=== PATIENT | female | born 1965 | race African-American/Black ===

== ENCOUNTER 2019-03-21 06:22 | Inpatient (IN) | payer OTHER ==
[2019-03-06 12:40] VITALS: BMI 37.4
[2019-03-21] MEDS ORDERED: DEXAMETHASONE SOD PHOSPHATE 4 MG/1 ML VIAL ONE ×3 (07:22→08:02)
[2019-03-21] MEDS ORDERED: LIDOCAINE HCL/PF 2% SDV 5ML VIAL ONE ×2 (07:22→11:00)
[2019-03-21] MEDS ORDERED: VANCOMYCIN 1,000 MG VIAL (RESTRICTED TO ID ONLY) ONE (07:22)
[2019-03-21] MEDS ORDERED: TRANEXAMIC ACID 1000 MG/10 ML VIAL ONE ×2 (07:22→09:56)
[2019-03-21] MEDS ORDERED: ceFAZolin SODIUM 1 GM VIAL ONE (07:22)
[2019-03-21] MEDS ORDERED: ONDANSETRON 4 MG/2 ML VIAL ONE ×2 (07:22→12:32)
[2019-03-21] MEDS ORDERED: PROPOFOL 20 ML ONE ×6 (07:22→10:27)
[2019-03-21] MEDS ORDERED: EPINEPHrine 1:10,000 (P-F SYR) 1 MG/10 ML DISP.SYRIN ONE (07:23)
[2019-03-21] MEDS ORDERED: EPHEDRINE SULFATE/0.9% NACL/PF 50 MG/10 ML SYRINGE NR ONE (07:23)
[2019-03-21] MEDS ORDERED: MIDAZOLAM HCL 2 MG/2 ML SINGLE DOSE VIAL ONE ×3 (07:23→07:45)
[2019-03-21] MEDS ORDERED: BUPIVACAINE HCL/PF 0.5% (5 MG/ML) 30 ML VIAL IJ ONE (07:45)
[2019-03-21] MEDS ORDERED: CEFAZOLIN 2 GM in DEXTROSE 5%-WATER - 100 ML IVPB ONE (08:00)
[2019-03-21] MEDS ORDERED: DEXMEDETOMIDINE HCL 200 MCG/2 ML IVPB ONE (08:18)
[2019-03-21] MEDS ORDERED: ROCURONIUM BROMIDE 50 MG/5 ML SYRINGE ONE ×2 (08:36→10:38)
[2019-03-21] MEDS ORDERED: fentaNYL CITRATE 250 MCG/5 ML VIAL ONE (08:56)
[2019-03-21] MEDS ORDERED: NEOSTIGMINE METHYLSULFATE 0.5 MG/ML - 10 ML MDV ONE (10:57)
[2019-03-21] MEDS ORDERED: LIDOCAINE HCL 2% JELLY (5 ML/TUBE) ONE (10:59)
[2019-03-21] MEDS ORDERED: LIDOCAINE HCL 2% 100 MG/5 ML DISP.SYRIN ONE (11:12)
[2019-03-21] MEDS ORDERED: ONDANSETRON 4 MG/2 ML VIAL IVPUSH PRN ×2 (11:25→12:02)
[2019-03-21] MEDS ORDERED: oxyCODONE HCL 5 MG TABLET PO PRN (11:25)
[2019-03-21] MEDS ORDERED: LACTATED RINGERS SOLUTION 1,000 ML IV SCH ×2 (11:30→12:15)
[2019-03-21] MEDS ORDERED: ALBUTEROL SO4 8 GM HFA INHALER IH PRN (12:01)
[2019-03-21] MEDS ORDERED: MAGNESIUM HYDROX 2400MG/30ML ORAL SUSPENSION 30 ML CUP PO PRN (12:02)
[2019-03-21] MEDS ORDERED: MAG HYDROX/AL HYDROX/SIMETH 30 ML UNIT-DOSE CUP PO PRN (12:02)
--- NOTE | 2019-03-21 12:12 | PN ---
Progress Note (short form) - Note Progress Note: 54F s/p right KEE POD #0. -Pain control. -Ancef 2g IV q6h x 3 doses post-op. -DVT PPx: - Chemical: ASA 81mg PO BID x 6 weeks. - Mechanical: LUPE's, SCD's. -Incentive spirometry. -PT/OT/Rehab, OOB. -WBAT RLE. -Right hip precautions. -Hip abduction pillow: straps loose, not tight. -Maintain kidd catheter until patient ambulating comfortably. -f/u AM labs. -f/u drain output. -f/u Urology consult d/t sanguinous drainage upon kidd catheter insertion. -Care per medical hospitalist team. -Discharge planning: f/u Tuesday03/30/2019 at [facility] [place] office; call for appointment; . -Will follow. Valentino Cast MD (Orthopaedic Surgery).
--- NOTE | 2019-03-21 12:18 | OP ---
Operative Note - Note: Operative Date: 03/21/19 Pre-Operative Diagnosis: Right hip osteoarthritis Operation: Right total hip replacement Implants: [place]. Cup - Trident II-Tritanium, 52mm, cluster; 2 x acetabular screws (25mm, 15mm). Poly - 32mm, neutral. Stem - Accolade II, #5, high offset. Head - 32mm, standard Biolox/Delta Ceramic Post-Operative Diagnosis: Same as Pre-op Surgeon: Valentino Cast [employer] Sign[employer] Supervisor: Fer Cast Anesthesiologist/CLINICAL RESEARCH MANAGEMENT ASSOCIATE: Mala Temlpeton Anesthesia: General Specimens Removed: Right femoral head Estimated Blood Loss (mls): 250 Drains & Tubes with Location: 1 x deep & 1 x superficial HemoVac drains Fluid Volume Replaced (mls): 2,000 (Crystalloid) Operative Report Dictated: Yes
[2019-03-21] MEDS ORDERED: ACETAMINOPHEN 325 MG TABLET (FP) ONE (13:38)
[2019-03-21] MEDS ORDERED: oxyCODONE HCL 5 MG TABLET ONE (13:38)
[2019-03-21] MEDS: ACETAMINOPHEN 325 MG TABLET (FP) PO SCH ×2 (13:40→17:08)
[2019-03-21] MEDS: oxyCODONE HCL 5 MG TABLET PO PRN ×2 (13:40→17:07)
--- NOTE | 2019-03-21 16:25 | HP ---
HISTORY OF PRESENT ILLNESS: 54 year-old female with a PMH significant for HTN, asthma, obesity, degenerative joint disease s/p right total hip replacement earlier today with Dr. Cast. Advised by LEATHER LACER after kidd placement, initial urine was yellow, clear, then bloody for a brief period. The blood in the kidd was seen prior to opening incision. Kidd urine is now pink-tinged, no clots. PAST MEDICAL HISTORY: Hypertension Asthma (3 intubations last 2008) Obesity Degenerative joint disease PAST SURGICAL HISTORY: Monroy rods in back age 14 Social History: Smoking: no Alcohol: occasional Drugs: no Allergies shellfish derived Allergy (Severe, Verified 03/21/19 07:18) ANAPHYLAXIS WAS HOSPITALIZES IN ICU X 3 DAYS HOME MEDICATIONS: Home Medications Medication Instructions Recorded Albuterol Sulfate Inhaler - 2 inh PO Q4H PRN 03/06/19 [Ventolin Hfa Inhaler -] Hydrochlorothiazide [Hctz -] 25 mg PO DAILY 03/06/19 Loratadine 10 mg PO DAILY 03/06/19 Montelukast Sodium [Singulair] 10 mg PO HS 03/06/19 Budesonide/Formeterol Fumarate 1 inh PO BID 03/07/19 [SYMBICORT 160/4.5mcg -] Nifedipine [Nifedipine ER] 60 mg PO DAILY 03/07/19 predniSONE [Deltasone] 20 mg PO ASDIR PRN 03/07/19 REVIEW OF SYSTEMS CONSTITUTIONAL: Absent: fever, chills, diaphoresis, generalized weakness, malaise, loss of appetite, weight change HEENT: Absent: rhinorrhea, nasal congestion, throat pain, throat swelling, difficulty swallowing, mouth swelling, ear pain, eye pain, visual changes CARDIOVASCULAR: Absent: chest pain, syncope, palpitations, irregular heart rate, lightheadedness , peripheral edema RESPIRATORY: Absent: cough, shortness of breath, dyspnea with exertion, orthopnea, wheezing, stridor, hemoptysis GASTROINTESTINAL: Absent: abdominal pain, abdominal distension, nausea, vomiting, diarrhea, constipation, melena, hematochezia GENITOURINARY: Absent: dysuria, frequency, urgency, hesitancy, hematuria, flank pain, genital pain MUSCULOSKELETAL: Absent: myalgia, arthralgia, joint swelling, back pain, neck pain SKIN: Absent: rash, itching, pallor HEMATOLOGIC/IMMUNOLOGIC: Absent: easy bleeding, easy bruising, lymphadenopathy, frequent infections ENDOCRINE: Absent: unexplained weight gain, unexplained weight loss, heat intolerance, cold intolerance NEUROLOGIC: Absent: headache, focal weakness or paresthesias, dizziness, unsteady gait, seizure, mental status changes, bladder or bowel incontinence PSYCHIATRIC: Absent: anxiety, depression, suicidal or homicidal ideation, hallucinations. PHYSICAL EXAMINATION Vital Signs - 24 hr 03/21/19 03/21/19 03/21/19 07:16 12:00 12:05 Temperature 98.1 F 98.4 F 98.4 F Pulse Rate 70 81 78 Respiratory 18 16 14 Rate Blood Pressure 115/77 165/97 130/100 O2 Sat by Pulse 98 100 100 Oximetry (%) 03/21/19 03/21/19 03/21/19 12:10 12:15 12:30 Temperature 98.4 F 98.4 F 98.4 F Pulse Rate 75 73 71 Respiratory 14 12 12 Rate Blood Pressure 157/85 155/83 160/83 O2 Sat by Pulse 100 100 100 Oximetry (%) 03/21/19 03/21/19 03/21/19 12:45 13:00 13:15 Temperature 98.4 F 98.4 F 98.4 F Pulse Rate 78 70 72 Respiratory 14 15 11 Rate Blood Pressure 164/81 155/80 155/86 O2 Sat by Pulse 100 100 100 Oximetry (%) 03/21/19 03/21/19 03/21/19 13:30 13:45 14:00 Temperature 98.4 F 98.4 F 98.4 F Pulse Rate 80 80 80 Respiratory 12 14 14 Rate Blood Pressure 155/861 H 142/85 143/89 O2 Sat by Pulse 100 100 100 Oximetry (%) GENERAL: Awake, sleepy but arousable, following commands, moving all extremities. No pain HEAD: Normal with no signs of trauma. LUNGS: Breath sounds equal, clear to auscultation bilaterally. No wheezes, and no crackles. No accessory muscle use. HEART: Regular rate and rhythm, normal S1 and S2 UPPER EXTREMITIES: 2+ pulses, warm, well-perfused. No cyanosis. No clubbing. No peripheral edema. LOWER EXTREMITIES: 2+ pulses, warm, well-perfused. RLE: left hip surgical dressing c/d/i; two drains into one Hemovac NEUROLOGICAL: Cranial nerves II-XII intact. Normal speech. Pre op Hgb 13.9 BUN 15 Cr 0.7 Intra op EBL 250 ccs UOP 450 ccs LR 2L Ancef x 2g Vanc x 1g ASSESSMENT/PLAN 54 year-old female with a PMH significant for HTN, asthma, obesity, degenerative joint disease s/p right total hip replacement earlier today with Dr. Cast. Right total hip replacement --POD #0 --perioperative antibiotics per surgery --pain management per surgery --ASA 81mg BID --protonix --bowel regimen --incentive spirometry --2 drains, one deep, one superficial into one Hemovac, monitor output --kidd catheter, pink-tinged urine --surgery requested urology consult Hypertension --continue nifedipine, HCTZ in am Asthma --stable FEN Fluids: LR@125mL/hr Electrolytes: replete as indicated Nutrition: regular diet DVT prophylaxis: OOB, ambulation, SCDs, TEDs, ASA 81mg BID Physical therapy Dispo: continues to require inpatient care. Full code. Visit type - Emergency Visit Emergency Visit: No - New Patient This patient is new to me today: Yes Date on this admission: 03/21/19 - Critical Care Critical Care patient: No
[2019-03-21] MEDS: CEFAZOLIN 2 GM/D5W 2 GM/50 ML ML IVPB SCH ×2 (16:45→21:27)
[2019-03-21] MEDS ORDERED: VANCOMYCIN 1 GRAM (PRE-DOCKED) 1,000 MG/250 ML BAG IVPB ONE (20:00)
[2019-03-21] MEDS ORDERED: PT OWN MED DRAWER 7, Y5N ONE (21:08)
[2019-03-21] MEDS: MONTELUKAST NA 10 MG TABLET PO SCH (21:28)
[2019-03-21] MEDS: oxyCODONE HCL 10 MG SUSTAINED ACTING TABLET PO SCH (21:28)
[2019-03-21] MEDS: ASPIRIN COATED 81 MG TABLET.EC PO SCH (21:28)
[2019-03-21] MEDS: SENNOSIDES/DOCUSATE COMBO (SENNA PLUS) TABLET (UD) PO SCH (21:29)
[2019-03-21] MEDS: BUDESONIDE/FORMETEROL FUMARATE 160/4.5 mcg INHALER IH SCH (21:35)
[2019-03-22] MEDS: CEFAZOLIN 2 GM/D5W 2 GM/50 ML ML IVPB SCH (03:36)
[2019-03-22] MEDS: ACETAMINOPHEN 325 MG TABLET (FP) PO SCH ×4 (05:07→19:00)
[2019-03-22] MEDS: oxyCODONE HCL 5 MG TABLET PO PRN ×2 (05:08→22:32)
--- NOTE | 2019-03-22 08:55 | CON.GU ---
Consult Consult Specialty:: Referred by:: Favian Reason for Consultation:: hematuria - History of Present Illness Chief Complaint: hematuria History of Present Illness: : 54 year-old female with a PMH significant for HTN, asthma, obesity, degenerative joint disease s/p right total hip replacement earlier today with Dr. Cast. Advised by DIRECTOR HEMATOLOGY after kidd placement, initial urine was yellow, clear, then bloody for a brief period. The blood in the kidd was seen prior to opening incision. Kidd urine is now pink-tinged, no clots. cons req. Pt has a hx of renal calculi. - History Source History Provided By: Patient, Medical Record Limitations to Obtaining History: No Limitations - Past Medical History Renal/: Yes: Hematuria ...LMP Comment: 2 YEARS GO ...: No - Alcohol/Substance Use Hx Alcohol Use: Yes (OCCASIONALLY) - Smoking History Smoking history: Never smoked Have you smoked in the past 12 months: No Home Medications - Allergies Allergies/Adverse Reactions: Allergies Allergy/AdvReac Type Severity Reaction Status Date / Time shellfish derived Allergy Severe ANAPHYLAXIS Verified 03/21/19 07:18 - Home Medications Home Medications: Ambulatory Orders Albuterol Sulfate Inhaler - [Ventolin Hfa Inhaler -] 2 inh PO Q4H PRN 03/06/19 Hydrochlorothiazide [Hctz -] 25 mg PO DAILY 03/06/19 Loratadine 10 mg PO DAILY 03/06/19 Montelukast Sodium [Singulair] 10 mg PO HS 03/06/19 Budesonide/Formeterol Fumarate [SYMBICORT 160/4.5mcg -] 1 inh PO BID 03/07/19 Nifedipine [Nifedipine ER] 60 mg PO DAILY 03/07/19 predniSONE [Deltasone] 20 mg PO ASDIR PRN 03/07/19 Review of Systems - Review of Systems Genitourinary: reports: Hematuria (after kidd insertion) Physical Exam- Vital Signs: Vital Signs Temperature 98.5 F 03/22/19 06:00 Pulse Rate 64 03/22/19 06:00 Respiratory Rate 18 03/22/19 06:00 Blood Pressure 119/62 03/22/19 06:00 O2 Sat by Pulse Oximetry (%) 94 L 03/22/19 06:00 Constitutional: Yes: Well Nourished, No Distress, Calm Gastrointestinal: Yes: WNL, Normal Bowel Sounds, Soft Renal/: Yes: WNL, Kidd Present. No: Hematuria (clear yellow urine) Problem List - Problems (1) Hematuria Assessment/Plan: u/a, c+s, cytology, remove kidd, f/u in my office after disch for cystoscopy Code(s): R31.9 - HEMATURIA, UNSPECIFIED (2) History of renal calculi Assessment/Plan: renal u/s Code(s): Z87.442 - PERSONAL HISTORY OF URINARY CALCULI
--- NOTE | 2019-03-22 09:20 | PN ---
Physical Exam: SUBJECTIVE: Patient seen and examined OBJECTIVE: Vital Signs Period Temp Pulse Resp BP Sys/Brambila Pulse Ox Last 24 Hr 98.1 F-98.5 F 54-81 - 116-165/62-861 94-100 GENERAL: Awake, following commands, moving all extremities. Pain 2/10 HEAD: Normal with no signs of trauma. LUNGS: Breath sounds equal, clear to auscultation bilaterally. No wheezes, and no crackles. No accessory muscle use. HEART: Regular rate and rhythm, normal S1 and S2 UPPER EXTREMITIES: 2+ pulses, warm, well-perfused. No cyanosis. No clubbing. No peripheral edema. LOWER EXTREMITIES: 2+ pulses, warm, well-perfused. RLE: left hip surgical dressing c/d/i; two drains into one Hemovac NEUROLOGICAL: Cranial nerves II-XII intact. Normal speech. Laboratory Results - last 24 hr 03/21/19 03/21/19 07:00 07:05 Blood Type O POSITIVE O POSITIVE Antibody Screen Negative Active Medications Generic Name Dose Route Start Last Admin Trade Name Freq PRN Reason Stop Dose Admin Acetaminophen 650 mg 03/21/19 12:00 03/22/19 05:07 Tylenol - PO 03/24/19 11:59 650 mg Q6H JUANA Administration Al Hydroxide/Mg Hydroxide 30 ml 03/21/19 12:02 Mylanta Oral Suspension - PO Q4H PRN DYSPEPSIA Albuterol Sulfate 2 puff 03/21/19 12:01 Ventolin Hfa Inhaler - IH Q4H PRN WHEEZING Aspirin 81 mg 03/21/19 22:00 03/21/19 21:28 Ecotrin - PO 81 mg BID JUANA Administration Budesonide/Formoterol Fumarate 1 puff 03/21/19 22:00 03/21/19 21:35 Symbicort 160/4.5mcg - IH 1 puff BID JUANA Administration Hydrochlorothiazide 25 mg 03/22/19 10:00 Hctz - PO DAILY JUANA Lactated Ringer's 1,000 mls @ 125 mls/hr 03/21/19 11:30 Lactated Ringers Solution IV ASDIR JUANA Loratadine 10 mg 03/22/19 10:00 Claritin - PO DAILY JUANA Magnesium Hydroxide 30 ml 03/21/19 12:02 Milk Of Magnesia - PO PRN PRN CONSTIPATION Montelukast Sodium 10 mg 03/21/19 22:00 03/21/19 21:28 Singulair - PO 10 mg HS JUANA Administration Nifedipine 60 mg 03/22/19 10:00 Procardia Xl - PO DAILY JUANA Ondansetron HCl 4 mg 03/21/19 12:02 Zofran Injection IVPUSH Q6H PRN NAUSEA Oxycodone HCl 5 mg 03/21/19 11:25 03/21/19 21:28 Roxicodone - PO 5 mg Q3H PRN Administration PAIN LEVEL 1-5 Oxycodone HCl 10 mg 03/21/19 11:25 03/22/19 05:08 Roxicodone - PO 10 mg Q3H PRN Administration PAIN LEVEL 6-10 Oxycodone HCl 10 mg 03/21/19 22:00 03/21/19 21:28 Oxycontin - PO 03/24/19 11:25 10 mg BID JUANA Administration Pantoprazole Sodium 40 mg 03/22/19 10:00 Protonix - PO DAILY [facility] Senna/Docusate Sodium 2 tablet 03/21/19 22:00 03/21/19 21:29 Pericolace - PO 2 tablet BID JUANA Administration ASSESSMENT/PLAN 54 year-old female with a PMH significant for HTN, asthma, obesity, degenerative joint disease s/p right total hip replacement 03/[address] Cast. Right total hip replacement --POD #1 --pain management per surgery --ASA 81mg BID --protonix --bowel regimen --incentive spirometry --2 drains, one deep, one superficial into one Hemovac, sanguineous drainage, monitor output --kidd catheter DC'd per Urology --surgery requested urology consult Hematuria --Dr. Nick Gonzalez (Urology) consulted -DC Kidd, -Urine Culture, -Kidney/Renal Ultrasound Impression- Mild Fullness of the right renal pelvicalyceal system in particular the right renal pelvis that may be due to an extrarenal pelvis. No gross stones identified Hypertension --continue nifedipine, HCTZ Asthma --stable FEN Fluids: LR@125mL/hr Electrolytes: replete as indicated Nutrition: regular diet DVT prophylaxis: OOB, ambulation, SCDs, TEDs, ASA 81mg BID Physical therapy Dispo: continues to require inpatient care. Full code. Visit type - Emergency Visit Emergency Visit: No - New Patient This patient is new to me today: Yes Date on this admission: 03/22/19 - Critical Care Critical Care patient: No - Discharge Referral Referred to [facility] Med P.C.: No
--- NOTE | 2019-03-22 09:53 | PN ---
Progress Note (short form) - Note Progress Note: 54F s/p right EKE POD #1. Pain well controlled. Right groin pain improved. (+) Incisional pain. No acute events overnight. Pt. denies overnight history of headaches, chest pain, shortness of breath, nausea, vomiting, chills, & sweats. (+) Taylor; (+) Flatus; (-) BM. (+) Out of bed to chair; walked to door with PT team. All labs and vitals reviewed. PE: AAO x 3, NAD. R-Hip: Dressing C/D/I. B/L LE neurovascular exam at baseline. : Urine tea colored - no blood tinge. 54F s/p right KEE POD #1. -Pain control: per anaesthesia team. -Offload heals with rolled towels under ankles to avoid heel ulcers/pressure sores. -Hip abduction pillow: straps loose, not tight. -DVT PPx: -Chemical: ASA 81mg PO BID x 6 weeks. -Mechanical: LUPE's, SCD's. -Incentive spirometry q15 min. -PT/OT/Rehab, OOB. -WBAT RLE. -Post-op Ancef x 3 doses. -f/u AM labs. -Diet as tolerated. -Care per medical hospitalist team. -Discharge planning: f/u [facility] [place] Office 7-10 days after hospital discharge; f/u w/Dr. Gonzalez (urology) as outpatient for cystoscopy; call for appointment . -Will follow. Valentino Cast MD (Orthopaedic Surgery).
[2019-03-22] MEDS: oxyCODONE HCL 10 MG SUSTAINED ACTING TABLET PO SCH ×2 (10:45→21:12)
[2019-03-22 10:49] LABS: EPITHELIAL CELLS MODERATE /hpf
[2019-03-22 10:52] LABS: HEMATOCRIT 35.2 % (32.4-45.2); HEMOGLOBIN 11.6 GM/dl (10.7-15.3); MEAN CELL VOLUME 87.9 fl (80-96); MEAN PLT VOLUME 9.1 fl (7.5-11.1); PLATELET COUNT 292 K/MM3 (134-434); RDW 12.6 % (11.6-15.6); WHITE BLOOD COUNT 10.5 K/mm3 (4.0-10.8)
[2019-03-22 10:57] LABS: CALCIUM 8.4 mg/dl (8.5-10); CREATININE 0.9 mg/dl (0.55-1.3); MAGNESIUM 1.8 mg/dL (1.8-2.4); POTASSIUM 3.6 mmol/L (3.5-5.1)
[2019-03-22] MEDS: LORATADINE 10 MG TABLET PO SCH (11:00)
[2019-03-22] MEDS: HYDROCHLOROTHIAZIDE 25 MG TABLET (FP) PO SCH (11:07)
[2019-03-22] MEDS: ASPIRIN COATED 81 MG TABLET.EC PO SCH ×2 (11:07→21:12)
[2019-03-22] MEDS: NIFEdipine E.R 60 MG TABLET (UD) PO SCH (11:08)
[2019-03-22] MEDS: BUDESONIDE/FORMETEROL FUMARATE 160/4.5 mcg INHALER IH SCH ×2 (11:08→21:13)
[2019-03-22] MEDS: SENNOSIDES/DOCUSATE COMBO (SENNA PLUS) TABLET (UD) PO SCH ×2 (11:08→21:12)
[2019-03-22] MEDS: PANTOPRAZOLE 40 MG TABLET (FP) PO SCH (11:08)
[2019-03-22] MEDS: MONTELUKAST NA 10 MG TABLET PO SCH (21:12)
[2019-03-23] MEDS: ACETAMINOPHEN 325 MG TABLET (FP) PO SCH ×3 (06:08→11:12)
--- NOTE | 2019-03-23 07:15 | PN ---
Progress Note (short form) - Note Progress Note: ORTHOPAEDIC SURGERY POD #2 s/p Right KEE Per RN notes no acute events over past 24 hours. Doing well. OOB and ambulating w/ PT --> notes reviewed. Adequate pain control. Voiding spontaneously. Tolerating PO diet. AVSS. Afebrile. PE: A&O, NAD. R-Hip: Dressing C/D/I. Drain w/ minimla drainage over past 24 hours. NEURO: B/L LE GMNVI LE: SCDS/TEDS. Problem List - Problems (1) Status post total hip replacement, right Assessment/Plan: POD #2 s/p right KEE -Cont Pain control: per anaesthesia team. -Offload heals with rolled towels under ankles to avoid heel ulcers/pressure sores. -Hip abduction pillow: straps loose, not tight. -DVT PPx: -Chemical: ASA 81mg PO BID x 6 weeks. -Mechanical: LUPE's, SCD's. -Incentive spirometry q15 min. -PT/OT/Rehab, OOB. -WBAT RLE. -Drain dc'd on rounds -f/u AM labs. -Diet as tolerated. -Care per medical hospitalist team. -Discharge home today after PT session -f/u w/ [facility] [place] [facility] 7-10 days after hospital discharge -f/u w/ Dr. Gonzalez (urology) as outpatient for cystoscopy; call for appointment ( [phone]. Above plan discussed with Dr. Valentino Cats and agrees. Code(s): Z96.641 - PRESENCE OF RIGHT ARTIFICIAL HIP JOINT (2) HTN (hypertension) Code(s): I10 - ESSENTIAL (PRIMARY) HYPERTENSION (3) Obesity (BMI 30-39.9) Code(s): E66.9 - OBESITY, UNSPECIFIED (4) Asthma Code(s): J45.909 - UNSPECIFIED ASTHMA, UNCOMPLICATED
[2019-03-23 07:31] VITALS: BP 117/70; PULSE 85; TEMP 98.5
[2019-03-23 08:03] LABS: HEMATOCRIT 34.3 % (32.4-45.2); HEMOGLOBIN 11.2 GM/dl (10.7-15.3); MCH 28.9 pg (25.7-33.7); MCHC 32.8 g/dl (32.0-36.0); MEAN CELL VOLUME 88.3 fl (80-96); MEAN PLT VOLUME 8.9 fl (7.5-11.1); PLATELET COUNT 279 K/MM3 (134-434); RBC 3.88 M/mm3 (3.60-5.2); RDW 12.7 % (11.6-15.6); WHITE BLOOD COUNT 9.3 K/mm3 (4.0-10.8)
[2019-03-23 08:14] LABS: ALBUMIN 2.6 g/dl (3.4-5.0); BILIRUBIN,TOTAL 0.5 mg/dl (0.2-1); CALCIUM 8.7 mg/dl (8.5-10); CREATININE 0.7 mg/dl (0.55-1.3); POTASSIUM 3.6 mmol/L (3.5-5.1); TOT PROT 5.9 g/dl (6.4-8.2)
--- NOTE | 2019-03-23 08:51 | DS ---
"Physical Exam: SUBJECTIVE: Patient seen and examined after finishing Physical Therapy OBJECTIVE: Vital Signs Period Temp Pulse Resp BP Sys/Brambila Pulse Ox Last 24 Hr 98.4 F-99.4 F 62-85 17-19 98-125/53-70 95-100 PHYSICAL EXAM GENERAL: Awake, following commands, moving all extremities. Pain 7/10 HEAD: Normal with no signs of trauma. LUNGS: Breath sounds equal, clear to auscultation bilaterally. No wheezes, and no crackles. No accessory muscle use. HEART: Regular rate and rhythm, normal S1 and S2 UPPER EXTREMITIES: 2+ pulses, warm, well-perfused. No cyanosis. No clubbing. No peripheral edema. LOWER EXTREMITIES: 2+ pulses, warm, well-perfused. RLE: left hip surgical dressing c/d/i. NEUROLOGICAL: Cranial nerves II-XII intact. Normal speech. LABS Laboratory Results - last 24 hr 03/22/19 03/22/19 03/22/19 09:57 10:15 10:15 WBC 10.5 RBC 4.00 Hgb 11.6 Hct 35.2 MCV 87.9 MCH 29.0 MCHC 33.0 RDW 12.6 Plt Count 292 MPV 9.1 Sodium 137 Potassium 3.6 Chloride 99 Carbon Dioxide 29 Anion Gap 9 BUN 24.0 H Creatinine 0.9 Est GFR (CKD-EPI)AfAm 83.43 Est GFR (CKD-EPI)NonAf 71.98 Random Glucose 123 H Calcium 8.4 L Magnesium 1.8 Total Bilirubin AST ALT Alkaline Phosphatase Total Protein Albumin Urine Color Yellow Urine Appearance Slightly Urine pH 6.0 Urine Protein 1+ H Urine Glucose (UA) Negative Urine Ketones Negative Urine Blood 3+ H Urine Nitrite Negative Urine Bilirubin Negative Urine Urobilinogen 0.2 Ur Leukocyte Esterase Negative Urine RBC 20-40 Urine WBC 2-5 Ur Transition Epith Cell Moderate Urine Bacteria Few 03/23/19 03/23/19 07:19 07:19 WBC 9.3 RBC 3.88 Hgb 11.2 Hct 34.3 MCV 88.3 MCH 28.9 MCHC 32.8 RDW 12.7 Plt Count 279 MPV 8.9 Sodium 136 Potassium 3.6 Chloride 98 Carbon Dioxide 31 Anion Gap 7 L BUN 15.0 Creatinine 0.7 Est GFR (CKD-EPI)AfAm 113.05 Est GFR (CKD-EPI)NonAf 97.54 Random Glucose 110 H Calcium 8.7 Magnesium Total Bilirubin 0.5 AST 32 ALT 12 L Alkaline Phosphatase 63 Total Protein 5.9 L Albumin 2.6 L Urine Color Urine Appearance Urine pH Urine Protein Urine Glucose (UA) Urine Ketones Urine Blood Urine Nitrite Urine Bilirubin Urine Urobilinogen Ur Leukocyte Esterase Urine RBC Urine WBC Ur Transition Epith Cell Urine Bacteria HOSPITAL COURSE: Date of Admission:03/21/19 Date of Discharge: 03/23/19 54 year-old female with a PMH significant for HTN, asthma, obesity, degenerative joint disease s/p right total hip replacement 03/[address] Cast. Right total hip replacement --POD #2 --pain management per surgery --ASA 81mg BID --protonix --bowel regimen --incentive spirometry --2 drains, one deep, one superficial into one Hemovac, sanguineous drainage, monitor output --kidd catheter DC'd per Urology --surgery requested urology consult --Drains DC'd 03/23 Hematuria --Dr. Nick Gonzalez (Urology) consulted -DC Kidd 03/22, -Urine Culture, -Kidney/Renal Ultrasound Impression- Mild Fullness of the right renal pelvicalyceal system in particular the right renal pelvis that may be due to an extrarenal pelvis. No gross stones identified -F/U in Dr. Gonzalez' office post discharge for cystoscopy Hypertension --continue nifedipine, HCTZ Asthma --stable FEN Fluids: LR@125mL/hr Electrolytes: replete as indicated Nutrition: regular diet DVT prophylaxis: OOB, ambulation, SCDs, TEDs, ASA 81mg BID Physical therapy Dispo: continues to require inpatient care. Full code. [facility] SOFTWARE ENGINEER Report Search Terms: esteban gale, 1965 Search Date: 03/23/2019 10:59:15 AM This report was requested by: London Lomas | Reference #: [id number] There are no results for the search terms that you entered. Minutes to complete discharge: 40 Discharge Summary Problems reviewed: Yes Reason For Visit: RIGHT HIP OSTEOARTHRITIS Current Active Problems Asthma (Acute) HTN (hypertension) (Acute) Hematuria (Acute) History of renal calculi (Acute) Obesity (BMI 30-39.9) (Acute) Status post total hip replacement, right (Acute) Condition: Good - Instructions Diet, Activity, Other Instructions: Dr. Cast Discharge Instructions for Hip Replacement Post Operative Instructions Physical activity Physical Therapist will come to your home for the first 5 days. You will be set up with outpatient PT at your first post-operative visit. Use assistive devices for ambulation at all times. Weight bearing as tolerated on your surgical side. Wound care Leave your surgical dressing in place. Do not change the dressing until seen by your surgeon in the office. No baths or showers. Do not submerge your incision. Do not apply any ointments or lotions to your incision. Please call the office if your dressing is soiled/dirty or is falling off. Apply Graduated Compression Stockings (TEDS) to both lower extremities-remove daily for hygiene ONLY. Diet There are no dietary restrictions. Eat healthy, high-fiber foods. Drink 6 to 8 glasses of liquid each day. This will assist in keeping your bowels are regular. Pain management Any pain prescription medication ordered should be taken as prescribed for moderate to severe pain. Do not take additional Tylenol while taking Percocet. Posterior Hip Precautions: Do not cross the leg you had surgery on over your other leg. (Do not cross your legs.)Use an elevated toilet seat. Do not sit on low chairs or beds. Use purple pillow (abductor) when lying in bed. Take Aspirin 81 mg two times a day for a total of 6 weeks to prevent blood clots. ISTOP: This report was requested by: Vernon Neri | Reference #: [id number] Call Dr. Cast for any of the following: Severe pain not relieved by medication Fever of 101 or higher Excessive bleeding or drainage on dressing Inability to urinate If you experience chest pain or shortness of breath, please seek emergency care immediately. Please call the office at to confirm your post-op appointment for the week following surgery. Follow up with Dr. Gonzalez office for a cystocopy Referrals: Nick Gonzalez MD [Staff Physician] - Disposition: HOME - Home Medications Comprehensive Discharge Medication List: Ambulatory Orders Albuterol Sulfate Inhaler - [Ventolin Hfa Inhaler -] 2 inh PO Q4H PRN 03/06/19 Hydrochlorothiazide [Hctz -] 25 mg PO DAILY 03/06/19 Loratadine 10 mg PO DAILY 03/06/19 Montelukast Sodium [Singulair] 10 mg PO HS 03/06/19 Budesonide/Formeterol Fumarate [SYMBICORT 160/4.5mcg -] 1 inh PO BID 03/07/19 Nifedipine [Nifedipine ER] 60 mg PO DAILY 03/07/19 predniSONE [Deltasone] 20 mg PO ASDIR PRN 03/07/19 This patient is new to me today: No Emergency Visit: Yes ED Registration Date: 03/21/19 Care time: The patient presented to the Emergency Department on the above date and was hospitalized for further evaluation of their emergent condition. Critical Care patient: No - Discharge Referral Referred to [facility] Med P.C.: No"
[2019-03-23] MEDS ORDERED: PT OWN MED DRAWER 7, Y5N ONE (10:26)
[2019-03-23] MEDS: ASPIRIN COATED 81 MG TABLET.EC PO SCH (10:46)
[2019-03-23] MEDS: HYDROCHLOROTHIAZIDE 25 MG TABLET (FP) PO SCH (10:47)
[2019-03-23] MEDS: oxyCODONE HCL 10 MG SUSTAINED ACTING TABLET PO SCH (10:47)
[2019-03-23] MEDS: NIFEdipine E.R 60 MG TABLET (UD) PO SCH (10:48)
[2019-03-23] MEDS: LORATADINE 10 MG TABLET PO SCH (10:48)
[2019-03-23] MEDS: SENNOSIDES/DOCUSATE COMBO (SENNA PLUS) TABLET (UD) PO SCH (10:48)
[2019-03-23] MEDS: PANTOPRAZOLE 40 MG TABLET (FP) PO SCH (10:48)
[2019-03-23] MEDS: BUDESONIDE/FORMETEROL FUMARATE 160/4.5 mcg INHALER IH SCH (10:49)
[2019-03-23] MEDS: oxyCODONE HCL 5 MG TABLET PO PRN (11:13)
--- NOTE | 2019-03-23 11:54 | OP ---
Date of Operation: 03/21/2019 Pre-Operative Diagnosis: Osteoarthritis right hip. Post-Operative Diagnosis: Osteoarthritis right hip. Procedure Performed: Right total hip replacement. Surgeon: Valentino Cast M.D. Sustainable Communities Designer: Fer Cast M.D.; Darrion Valentino PA-C. Anesthesia: Spinal, sedation. Position: Supine Incision: Lateral. Specimens Removed: Bones, soft tissue. Estimated Blood Loss: 250 mL. Intravenous Fluid: 2L crystalloid. Specimens: Right femoral head. Drains: 1 x deep & 1 x superficial HemoVac drain. Complications: None. Urine Output: None. Bacteriology: None. Transfusions: None. Closure: No. 1 Vicryl, skin martha. Indications: The patient was indicated for a right total hip replacement in order to facilitate improved motion and mobilization, and to prevent the complications associated with a sedentary lifestyle. The patient was identified in the holding area by her armband. A long discussion was held with the patient (in the presence of the patient's family) regarding the risks, benefits and alternatives of the above named procedure. Risks include but are not limited to: pain, bleeding, infection, damage to surrounding structures (including nerves, blood vessels, skin, ligaments, tendons and bone), wound complications, failure of hardware/implants/reduction, need for further surgery, blood clots, myocardial infarction, pulmonary embolism , cerebrovascular insult, anaesthesia complications, compartment syndrome, limb loss, limp, loss of function, and . Benefits as mentioned above. Alternatives include no surgery. All questions were answered. The patient understood and agreed to the procedure. Informed consent was obtained, witnessed and verified. The patients correct operative limb - that is the right lower extremity - was marked, and the patient was taken to the operating room after being seen by the anesthesia and nursing staff. Procedure: The patient was brought into the operating room, placed on the OR table and secured with a safety strap. Consent and the operative site were again verified with the patient and nursing and anaesthesia staff. Anaesthesia was then administered. This included 2g IV Ancef, 1g IV Vancomycin, and 1g IV tranexamic acid (TXA). The patient was placed in the supine position with the greater trochanter of the operative limb lying at the edge of the table, thus freeing the muscles of the buttock from the table. All bony prominences were well padded. The non-operative limb was loosely secured to the operating table using a Kerlix bandage. With respect to the pelvis, the limb lengths were accurately compared. The operative limb was prepped in standard sterile fashion using betadine prep & scrub, alcohol, and DuraPrep, and then free draped. A time out was done, led by me the attending surgeon, and the case began. With the patient in the supine position, a modified lateral (Hardinge) approach was utilized to access the hip. The skin incision was centered over the greater trochanter proximally, at the level of the anterior-superior iliac spine, and extended distally, ending 3-5cm distal to the vastus ridge, along the anterior border of the femur. Subcutaneous dissection was carried down to the level of the iliotibial band which was split longitudinally in line with its fibers. The gluteus betty muscle was split proximally in line with its fibers to the level of the apex of the incision. A standard Charnley retractor was then placed subfascially to expose the deep structures. Using electrocautery, a hockey stick incision was utilized to split the anterior 25% fibers of gluteus medius and gain access to the flavio-lateral femur. This ended parallel to the femur at the entry point to the Lucio-Cantu window. Electrocautery was then used to expose the anterior neck of the femur. The supero-lateral and infero-medial hip capsule was then incised and anterior radial capsular cuts were made as needed. An anterior acetabular retractor was then placed to facilitate exposure. The operative limb was adducted across the midline and the hip was externally rotated with the knee flexed using the tibia as a lever to facilitate an anterolateral hip dislocation. A femoral neck cut was made approximately 1cm proximal to the lesser trochanter using an oscillating saw. The femoral head was delivered out of the operative field. The operative limb was then brought back onto the table and the ankles were crossed. Posterior and inferior acetabular retractors were then placed. The acetabulum was then reamed in sequentially increasing diameter using sharp domed basket reamers, ensuring concentric acetabular bone bed preparation. A Rosalia Trident II-Tritanium, 52mm cup was then impacted, achieving solid press fit in the desired orientation based on pelvic alignment. Due to the soft nature of the reamed acetabular bone bed, 2 screws were used to augment cup fixation. A 32mm, neutral highly cross-linked UHMWPE liner was then implanted. All retractors were removed. The operative limb was adducted and externally rotated to allow visualization of the proximal femur. A sharp Hohmann retractor was placed posterior to the tip of the greater trochanter to protect the hip abductor. A box osteotome was used to begin the femoral preparation. A sharp, end cutting reamer was used to manually gain entry to the femoral canal. Next, broaches were delivered via mallet strikes to prepare the proximal femoral bone bed for final implantation. The tibia was used as a goniometer with which we could accurately dial in our desired femoral anteversion. Modular femoral stem, neck, and head trial components were assembled and the hip was reduced. In the supine position, the true limb lengths were matched. The hip was then reduced and stability was ensured in all physiologic positions of compromise. This included flexion to 90 degrees with adduction and internal rotation. This also included extension and external rotation. At no point did the trunion impinge upon the cup. A Rosalia Accolade II, #5, high-offset stem was then implanted using mallet strikes until achieving solid press-fit. A Biolox/Delta Ceramic head 32mm diameter, standard length head was then impacted using a protective head impacter and mallet strikes. As before, the hip was reduced and stability was ensured in all physiologic positions of compromise. Again, in the supine position, the true limb lengths were matched. The operative limb lay in physiologic 15 degrees of external rotation. The wounds were copiously irrigated throughout the case and hemostatis was assured. Meticulous technique was implemented to avoid any implants coming into contact with free edges of the wound & skin. A deep and a superficial HemoVac drain was utilized. The split gluteus medius muscle fibers were reattached using #1 vicryl sutures. The iliotibial band, gluteus betty fascia, and subcutaneous tissues were closed using #1 vicryl sutures. The skin was closed using martha. A sterile compressive dressing was applied. A hip abduction pillow was placed between the legs. The patient was transferred to a hospital bed. A post-operative x-ray was taken with the patient on the hospital bed. This showed the hip to be well reduced with all implants in place and no evidence of priya-prosthetic fracture or retained foreign body. The patient was then transferred to the recovery room in stable condition, as per the anesthesia team, having tolerated the procedure well. Valentino Cast MD [id number] MTDD
--- NOTE | 2019-03-26 16:34 | PATH ---
Surgical Pathology Report Patient Name: GURU GENTILE Med. Rec. #: [id number] /Age/Gender: 1965 (Age: 54) / F Account: [id number] Location: [facility] MED-[facility]G Taken: 03/21/2019 Received: 03/21/2019 Reported: 03/26/2019 Physicians: Valentino Cast M.D. Specimen(s) Received RIGHT FEMORAL HEAD Clinical History Osteoarthritis right hip Final Diagnosis BONE, FEMORAL HEAD, RIGHT, TOTAL HIP REPLACEMENT: BONE WITH DEGENERATIVE JOINT DISEASE AND REACTIVE CHANGES. Electronically Signed Karla Marino M.D. Gross Description Received in formalin, labeled "right femoral head," is a 4.3 x 4.3 x 4.0 cm. femoral head with a 1.2 cm in length portion of femoral neck attached. The margin of resection is smooth. There is a 3.3 cm greatest dimension area of eburnation present. The remaining articular surface is purdy-yellow and focally granular and nodular. The underlying trabecular bone is yellow and hard. A exhibit display representative section is submitted in one cassette, following decalcification. 03/23/2019 [facility]03/23/2019
== END 2019-03-23 12:35 | disposition home or self-care (01) | DRG 470 ==
LOC: FM/S 06:22
PROVIDERS: ADMIT Orthopaedic Surgery Adult Reconstructive Orthopaedic Surgery; ATTEND Nurse Practitioner Acute Care
PROC: 0SR903A Replacement of Right Hip Joint with Ceramic Synthetic Substitute, Uncemented, Open Approach (ICD-10-PCS; principal; 2019-03-21 09:34)
DX: M16.11 Unilateral primary osteoarthritis, right hip (principal); R31.9 Hematuria, unspecified; I10 Essential (primary) hypertension; J45.909 Unspecified asthma, uncomplicated; E66.9 Obesity, unspecified; Z68.37 Body mass index [BMI] 37.0-37.9, adult
CPT/HCPCS: 36415; 73502-TC-RT-FY; 76775-TC; 80048; 80053; 81003; 81015; 83735; 85027; 86850; 86900; 86901; 87086; 88305-TC; 88311-TC; 94760; 97116-GP; 97162-GP

== ENCOUNTER 2021-08-28 08:52 | Day surgery (SDC) | payer OTHER ==
[2021-08-21 16:27] VITALS: BMI 41.5
[2021-08-28 09:41] VITALS: BP 121/74; PULSE 62; TEMP 97.9
[2021-08-28] MEDS ORDERED: predniSONE 20 MG TABLET (UD) PO PRN (09:41)
[2021-08-28] MEDS ORDERED: ALBUTEROL SO4 HFA INHALER IH PRN (09:41)
[2021-08-28] MEDS ORDERED: PATIENT'S OWN MEDICATION (NON-FORMULARY) (Nifedipine [Nifedipine Er] 60 MG Tablet.Er) PO SCH (10:00)
[2021-08-28] MEDS ORDERED: LORATADINE 10 MG PO SCH (10:00)
[2021-08-28] MEDS ORDERED: HYDROCHLOROTHIAZIDE 12.5 MG CAPSULE (FP) PO SCH (10:00)
[2021-08-28] MEDS ORDERED: BUDESONIDE/FORMETEROL FUMARATE 160/4.5 mcg INHALER IH SCH (10:00)
[2021-08-28] MEDS ORDERED: MONTELUKAST NA 10 MG TABLET PO SCH (22:00)
[2021-08-30 08:10] LABS: SARS-CoV-2 NAA Not Detected (Not Detected)
== END 2021-08-28 13:12 | disposition home or self-care (01) ==
LOC: FASU 08:52
PROVIDERS: ATTEND Orthopaedic Surgery Orthopaedic Surgery of the Spine
PROC: 0PB90ZZ Excision of Right Clavicle, Open Approach (ICD-10-PCS; principal; 2021-08-28)
PROC: 0MN10ZZ Release Right Shoulder Bursa and Ligament, Open Approach (ICD-10-PCS; 2021-08-28)
PROC: 0LQ10ZZ Repair Right Shoulder Tendon, Open Approach (ICD-10-PCS; 2021-08-28)
DX: Z53.8 Procedure and treatment not carried out for other reasons (principal)
CPT/HCPCS: C9803-CS; U0003; U0005

== ENCOUNTER 2021-09-25 05:56 | Day surgery (SDC) | payer OTHER ==
[2021-09-23 13:56] VITALS: BMI 41.9
[2021-09-25] MEDS ORDERED: MIDAZOLAM HCL 2 MG/2 ML SINGLE DOSE VIAL ONE ×2 (07:21)
[2021-09-25] MEDS ORDERED: BUPIVACAINE HCL 150 ML ONE (07:24)
[2021-09-25] MEDS ORDERED: PROPOFOL 20 ML ONE ×7 (08:03→10:31)
[2021-09-25] MEDS ORDERED: SUCCINYLCHOLINE CHLORIDE 200 MG/10 ML SYRINGE ONE (08:03)
[2021-09-25] MEDS ORDERED: DEXAMETHASONE SOD PHOSPHATE 4 MG/1 ML VIAL ONE ×2 (10:38)
[2021-09-25] MEDS ORDERED: ONDANSETRON 4 MG/2 ML VIAL ONE (10:38)
[2021-09-25] MEDS ORDERED: VANCOMYCIN 1,000 MG VIAL (RESTRICTED TO ID ONLY) ONE (10:39)
[2021-09-25] MEDS ORDERED: ceFAZolin SODIUM 1 GM VIAL ONE ×2 (10:39)
[2021-09-25] MEDS ORDERED: TRANEXAMIC ACID 1000 MG/10 ML VIAL ONE (10:39)
[2021-09-25] MEDS ORDERED: NAPROXEN 500 MG TABLET PO PRN (10:55)
[2021-09-25] MEDS ORDERED: ALBUTEROL SO4 HFA INHALER IH PRN (10:55)
[2021-09-25] MEDS ORDERED: oxyCODONE HCL 5 MG TABLET PO PRN ×2 (11:01)
[2021-09-25] MEDS ORDERED: PROMETHAZINE HCL 25 MG/1 ML VIAL IVPUSH PRN (11:01)
[2021-09-25] MEDS ORDERED: ONDANSETRON 4 MG/2 ML VIAL IVPUSH PRN (11:01)
[2021-09-25] MEDS ORDERED: LACTATED RINGERS SOLUTION 1,000 ML IV SCH (11:15)
[2021-09-25 12:03] VITALS: TEMP 97.8
[2021-09-25 12:47] VITALS: BP 116/78; PULSE 84
[2021-09-25] MEDS ORDERED: BUDESONIDE/FORMETEROL FUMARATE 160/4.5 mcg INHALER IH SCH (22:00)
[2021-09-25] MEDS ORDERED: MONTELUKAST NA 10 MG TABLET PO SCH (22:00)
[2021-09-26] MEDS ORDERED: PATIENT'S OWN MEDICATION (NON-FORMULARY) (Nifedipine [Nifedipine Er] 60 MG Tablet.Er) PO SCH (10:00)
[2021-09-26] MEDS ORDERED: HYDROCHLOROTHIAZIDE 25 MG TABLET (FP) PO SCH (10:00)
[2021-09-26] MEDS ORDERED: LORATADINE 10 MG PO SCH (10:00)
== END 2021-09-25 12:48 | disposition home or self-care (01) ==
LOC: FASU 05:56
PROVIDERS: ATTEND Orthopaedic Surgery Adult Reconstructive Orthopaedic Surgery
PROC: 0LQ10ZZ Repair Right Shoulder Tendon, Open Approach (ICD-10-PCS; 2021-09-25)
PROC: 0PB90ZZ Excision of Right Clavicle, Open Approach (ICD-10-PCS; principal; 2021-09-25 09:37)
PROC: 0MN10ZZ Release Right Shoulder Bursa and Ligament, Open Approach (ICD-10-PCS; 2021-09-25 09:37)
DX: M75.121 Complete rotator cuff tear or rupture of right shoulder, not specified as traumatic (principal); M75.41 Impingement syndrome of right shoulder
CPT/HCPCS: 88304-TC; 88311-TC; 94760